=== PATIENT | female | born 1950 | race Caucasian/White ===

== ENCOUNTER 2017-02-13 08:00 | Outpatient (CLI) | payer MEDICARE, BC | END 2017-02-13 08:01 | disposition home or self-care (01) | LOC: BICMAMMO 08:00 | PROVIDERS: ATTEND Family Medicine | DX: Z12.31 Encounter for screening mammogram for malignant neoplasm of breast (principal); Z78.0 Asymptomatic menopausal state; M85.88 Other specified disorders of bone density and structure, other site; M85.852 Other specified disorders of bone density and structure, left thigh | CPT/HCPCS: 77063; 77080; G0202; 77067 ==

== ENCOUNTER 2017-10-11 10:25 | Outpatient (CLI) | payer MEDICARE, BC ==
--- NOTE | 2017-10-11 13:48 | MRI ---
MRI CERVICAL SPINE WITHOUT CONTRAST: HISTORY: Cervicalgia. Bilateral shoulder pain and leg pain. COMPARISON: None. TECHNIQUE: Cervical spine MRI is performed without intravenous Gadolinium administration. Multisequential, mult iplanar imaging is performed. FINDINGS: There is appropriate T1 marrow signal intensity of cervical vertebrae. Cervical spine vertebral body height is maintained. There is no fracture. There is 2.4 mm anterolisthesis of C3 upon C4. There is a combination of type I and type II Modic changes in the end plates along the C4-C5, C5-C6, and C6 -C7 disk spaces. There may also be some type I and type II Modic changes along the superior end plat e of T12. Visualized brain parenchyma, cervicomedullary junction, cervical cord, and the upper thoracic cord quiñones ve an overall normal size and signal intensity. C2-C3: No significant disk-osteophyte complex. No significant central canal stenosis. Foramen are patent. C3-C4: Central distal bulge abuts the thecal sac. There is no significant central canal stenosis. Neural foramen are patent. C4-C5: Broad-based disk-osteophyte complex with a right paracentral component. There is deformity o f the right hemicord, without T2 hyperintensity of the cord. Moderate central canal stenosis. Degen erative change of bilateral uncovertebral joints results in mild bilateral foraminal narrowing. C5-C6: Broad-based disk-osteophyte complex with a central component. There is flattening of the the gordo sac and mild deformity of the ventral cord, without T2 hyperintensity of the cord. Mild central canal stenosis. Mild right foraminal narrowing due to facet hypertrophy. The left neural foramen is patent. C6-C7: Broad-based disk-osteophyte complex with a right paracentral component. Overall, there is mi ld central canal stenosis. Mild flattening of the ventral thecal sac and ventral cord. No T2 hyperi ntensity of the cord. Degenerative changes of bilateral uncovertebral joints results in moderate rig ht and moderate to severe left neural foraminal narrowing. C7-T1: There is a broad-based disk-osteophyte complex without significant central canal stenosis. B ilaterally, there is mild foraminal narrowing. 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 IMPRESSION: Degenerative changes of the cervical spine as above. POS: [facility]
== END 2017-10-11 10:26 | disposition home or self-care (01) ==
LOC: SCSMRI 10:25
PROVIDERS: ATTEND Family Medicine
DX: M47.22 Other spondylosis with radiculopathy, cervical region (principal)
CPT/HCPCS: 72141

== ENCOUNTER 2018-06-19 14:04 | Outpatient (CLI) | payer MEDICARE, BC ==
--- NOTE | 2018-06-20 11:55 | MMO ---
Bilateral MAMMO Bilat Screen DDI. CLINICAL HISTORY: Patient is 67 years old and is seen for screening. The patient has no family history of breast cancer. The patient has no personal history of cancer. VIEWS: The views performed were: bilateral craniocaudal and bilateral mediolateral oblique. FILMS COMPARED: The present examination has been compared to prior imaging studies performed at [facility] on 03/27/2001, 05/29/2002, 12/11/2003, 12/12/2003, 07/08/2004, 08/23/2005, 02/12/2007, 02/25/2008, 03/18/2009, 01/05/2015, 01/11/2016 and 02/13/2017. This study has been interpreted with the assistance of computer-aided detection. MAMMOGRAM FINDINGS: The breasts are heterogeneously dense, which could obscure a lesion on mammography. There are no suspicious masses, suspicious calcifications, or new areas of architectural distortion. IMPRESSION: THERE IS NO MAMMOGRAPHIC EVIDENCE OF MALIGNANCY. A ROUTINE FOLLOW-UP MAMMOGRAM IN 1 YEAR IS RECOMMENDED. ACR BI-RADS Category 1 - Negative MAMMOGRAPHY NOTE: 1. A negative mammogram report should not delay a biopsy if a dominant of clinically suspicious mass is present. 2. Approximately 10% to 15% of breast cancers are not detected by mammography. 3. Adenosis and dense breasts may obscure an underlying neoplasm.
== END 2018-06-19 14:05 | disposition home or self-care (01) ==
LOC: SCSMAMMO 14:04
PROVIDERS: ATTEND Family Medicine
DX: Z12.31 Encounter for screening mammogram for malignant neoplasm of breast (principal)
CPT/HCPCS: 77067

== ENCOUNTER 2018-06-20 13:22 | Outpatient (CLI) | payer MEDICARE, BC ==
--- NOTE | 2018-06-20 14:08 | RAD ---
Exam 2 views lumbar spine History low back pain. COMPARISON: None FINDINGS: Slight leftward curvature lumbar spine. There are 5 lumbar type vertebral bodies. There is partial lumbarization of S1. Lumbar spine vertebral body height is maintained. There is no fracture. 3.4 mm of anterolisthesis of L4 upon L5. IMPRESSION: 1. Partial lumbarization of S1. 2. Grade 1 anterolisthesis of L4 upon L5
--- NOTE | 2018-06-20 14:09 | RAD ---
Exam:Right femur 2 views HISTORY: Pain COMPARISON: None FINDINGS: No fracture. No cortical irregularity. No periosteal reaction. IMPRESSION: No fracture. Unremarkable exam.
--- NOTE | 2018-06-20 14:10 | RAD ---
Exam:Left femur 2 views HISTORY: Pain COMPARISON: None FINDINGS: No fracture. No cortical irregularity. No periosteal reaction IMPRESSION: No fracture.
--- NOTE | 2018-06-20 14:31 | BD ---
DEXA DENSITOMETRY: INDICATIONS: A 67-year-old female for postmenopausal osteoporosis screening. FINDINGS: LUMBAR SPINE BMD (g/cm2) T-SCORE L1 0.681 -2.8 L2 0.748 -2.5 L3 0.906 -1.6 L4 0.926 -1.2 TOTAL 0.826 -2.0 FEMORAL NECK 0.705 -1.3 TOTAL 0.946 0.0 IMPRESSION: Bone mineral density of the lumbar spine and femoral neck both indicate osteopenia. POS: [facility]
== END 2018-06-20 13:23 | disposition home or self-care (01) ==
LOC: BICMAMMO 13:22
PROVIDERS: ATTEND Internal Medicine Rheumatology
DX: M81.0 Age-related osteoporosis without current pathological fracture (principal); M79.605 Pain in left leg; M79.604 Pain in right leg; M54.5 Low back pain; M43.16 Spondylolisthesis, lumbar region; M85.89 Other specified disorders of bone density and structure, multiple sites
CPT/HCPCS: 72100; 77080

== ENCOUNTER 2019-03-22 09:00 | Outpatient (CLI) | payer MEDICARE, BC ==
--- NOTE | 2019-03-22 10:38 | CT ---
CT Brain WO Con History: Positional headaches. Comparison: None. Findings: No acute hemorrhage or infarct. No midline shift. No mass effect. Ventricular size and extr a-axial CSF spaces are normal. Calvarium is intact. Paranasal sinuses and mastoids are clear. Impression: No acute intracranial abnormality. No findings to explain the patient's positional headac hes.
== END 2019-03-22 09:01 | disposition home or self-care (01) ==
LOC: SCSCT 09:00
PROVIDERS: ATTEND Family Medicine
DX: R51 Headache (principal)
CPT/HCPCS: 70450

== ENCOUNTER 2019-12-27 04:21 | Emergency (ER) | payer MEDICARE, BC ==
[2019-12-27 05:06] LABS: Hemoglobin 12.7 g/dL (12.0-16.0); Mean Corpuscular HGB CONC 35.1 g/dL (32.0-36.0); Mean Corpuscular Hemoglobin 34.4 pg (27.0-31.0); Mean Platelet Volume 7.6 fL (7.4-10.4); Platelet Count 136 thou/uL (130-400); White Blood Cell (WBC) Count 4.5 thou/uL (4.8-10.8)
[2019-12-27 05:23] LABS: Band 1 % (5-11); Eosinophils 3 % (0-10); Lymphocytes 69 % (21-51); MDiff Complete? YES; Monocytes 8 % (0-10); Neutrophil 19 % (42-75); Platelet Morphology Comment Appears Adequate; RBC Morphology Normal
[2019-12-27 05:27] LABS: ALT (SGPT) 17 U/L (8-55); AST (SGOT) 28 U/L (5-34); Alkaline Phosphatase 71 U/L (40-110); Anion Gap 14 mmol/L (10-20); BUN (Urea Nitrogen) 11 mg/dL (9.8-20.1); Bilirubin, Total 0.4 mg/dL (0.2-1.2); Calc. Creatinine Clearance 0 mL/min (70-130); Calcium 10.1 mg/dL (7.8-10.44); Carbon Dioxide 23 mmol/L (23-31); Chloride 104 mmol/L (98-107); Estimated GFR-MDRD 54; Glucose 102 mg/dL (80-115); Potassium 4.1 mmol/L (3.5-5.1); Sodium 137 mmol/L (136-145)
[2019-12-27] MEDS ORDERED: Ondansetron PF 4 MG/2 ML Vial ONE (05:44)
[2019-12-27 07:17] LABS: Troponin I 0.011 ng/mL (< 0.028)
--- NOTE | 2019-12-27 07:48 | RAD ---
XR Chest 1 View Portable History: Chest pain Comparison: Radiograph 2015 Findings: There is a peripheral opacity projecting over the right upper apex is somewhat peripheral o rientation. Right of the lungs are clear. No pneumothorax. No effusion. No pulmonary consolidation. Mild aortic calcifications. No acute osseous abnormality. Impression: Faint peripheral opacity right upper lobe with peripheral pleural abutment. Although this could reflect an area of scar, nonemergent follow-up CT chest recommended.
--- NOTE | 2020-01-18 13:07 | EKG ---
Test Reason : CHESTPAIN Blood Pressure : / mmHG Vent. Rate : 076 BPM Atrial Rate : 076 BPM P-R Int : 162 ms QRS Dur : 072 ms QT Int : 378 ms P-R-T Axes : 075 009 020 degrees QTc Int : 425 ms Normal sinus rhythm with sinus arrhythmia Possible Left atrial enlargement Borderline ECG Confirmed by CHAN BIRD ([id number]), sports editor JESS RALPH ([id number]) on 01/18/2020 1:07:03 PM Referred By: Confirmed By:CHAN BIRD
== END 2019-12-27 07:31 | disposition home or self-care (01) ==
LOC: ERS 04:21
DX: R07.89 Other chest pain (principal); E78.5 Hyperlipidemia, unspecified; E78.00 Pure hypercholesterolemia, unspecified; Z79.899 Other long term (current) drug therapy
CPT/HCPCS: 36415; 71045; 80053; 83880; 84484; 85025; 93005; 96374; J2405